=== PATIENT | female | born 1975 | race Caucasian/White ===

== ENCOUNTER → 2017-06-10 | Outpatient (CLI) | payer OTHER ==
--- NOTE | 2017-06-10 09:06 | KCIC ---
CT MAXILLOFACIAL WO CONTRAST dated 06/10/2017 8:30 AM Indication: Acute sinusitis, cough drainage, congestion Comparison: No comparison is available. Technique: Contiguous axial imaging maximum facial bones obtained with thin cut coronal and sagittal reconstruction. One or more of the following individualized dose reduction techniques were utilized for this examination: 1. Automated exposure control 2. Adjustment of the mA and/or kV according to patient size 3. Use of iterative reconstruction technique Findings: Mild mucosal thickening of the inferior maxillary sinus on the left. Minimal mucosal thickening of the bilateral ethmoid air cells. Frontal and sphenoid sinuses are patent. Ostiomeatal units are patent. There is mild narrowing of the right infundibulum. The nasal septum is minimally deviated to the left. There is mild bilateral nasal turbinate hypertrophy. Mastoid air cells and middle ears are clear. Imaged portions the brain parenchyma unremarkable. No signal soft tissue abnormality. IMPRESSION: 1. Minimal sinus disease. Electronically signed by: Lazaro Marion MD (06/10/2017 9:02 AM) [id number]
== END | disposition home or self-care (01) ==
LOC: KCIC CT 08:16
PROVIDERS: ATTEND Otolaryngology
DX: J01.90 Acute sinusitis, unspecified (principal); J34.3 Hypertrophy of nasal turbinates
CPT/HCPCS: 70486

== ENCOUNTER → 2017-12-03 | Outpatient (CLI) | payer OTHER | END | disposition home or self-care (01) | LOC: PCVCIMAG 13:43 | DX: I42.0 Dilated cardiomyopathy (principal); E78.5 Hyperlipidemia, unspecified; I34.0 Nonrheumatic mitral (valve) insufficiency; I44.2 Atrioventricular block, complete; F17.210 Nicotine dependence, cigarettes, uncomplicated; Z95.0 Presence of cardiac pacemaker; Z79.899 Other long term (current) drug therapy; Z88.8 Allergy status to other drugs, medicaments and biological substances | CPT/HCPCS: 80061; 93005; 93306 ==